=== PATIENT | male | born 1965 | race African-American/Black ===

== ENCOUNTER 2020-11-28 22:01 | Emergency (ER) | payer MEDICARE, MEDICAID, OTHER ==
[~2020-11-28] VITALS: Ht 170.2 cm; Wt 73.0 kg
[2020-11-28 22:30] LABS: HEMATOCRIT 42.9 % (39.0-50.0); HEMOGLOBIN 13.6 g/dl (14.0-18.0); IMMATURE GRANULOCYTES 0.5 % (0.0-5.0); MEAN CELL VOLUME 96.6 fL CALC (80.0-100.0); MEAN CORPUSCULAR HGB 30.6 pG CALC (26.0-32.0); MEAN CORPUSCULAR HGB CONC 31.7 g/dL CAL (32.0-36.0); NEUT# 2.11 thou/uL (1.82-7.42); RED BLOOD COUNT 4.44 mill/uL (4.70-6.10); RED CELL DISTRI WIDTH 15.5 % (11.5-15.5)
[2020-11-28 22:42] LABS: BILIRUBIN, TOTAL 0.3 mg/dL (0.0-1.4); POTASSIUM 3.8 mmol/l (3.5-5.1); TOTAL PROTEIN 6.9 g/dL (6.3-8.2)
[2020-11-28] MEDS ORDERED: TRIUMEQ 600-50-1 TAB PO (23:05)
[2020-11-28] MEDS ORDERED: NEURONTIN400 MG PO (23:05)
[2020-11-28] MEDS ORDERED: VITAMIN D33000 UNIT PO (23:06)
[2020-11-28] MEDS ORDERED: [UNRECOGNIZED DRUG - OTHER] PO (23:08)
[2020-11-28] MEDS ORDERED: PERCOCET 5/325M1 TAB PO (23:12)
[2020-11-28] MEDS ORDERED: XANAX1 MG PO (23:13)
[2020-11-28] MEDS ORDERED: KLONOPIN1 MG PO (23:14)
[2020-11-29 00:50] VITALS: BP 138/79
[2020-11-29] MEDS ORDERED: AMBIEN10 MG PO (00:53)
[2020-11-29] MEDS ORDERED: MAGNESIUM 400 M1 TAB PO (00:54)
[2020-11-29] MEDS ORDERED: FLEXERIL5 M1 PO (04:19)
== END 2020-11-29 00:50 | disposition home or self-care (01) | DRG 92 ==
LOC: ED 22:01
PROVIDERS: Emergency Medicine
DX: R25.2 Cramp and spasm (principal); D72.819 Decreased white blood cell count, unspecified; D69.6 Thrombocytopenia, unspecified; N18.9 Chronic kidney disease, unspecified; D64.9 Anemia, unspecified; C85.10 Unspecified B-cell lymphoma, unspecified site; F41.9 Anxiety disorder, unspecified; F17.200 Nicotine dependence, unspecified, uncomplicated; Z21 Asymptomatic human immunodeficiency virus [HIV] infection status

== ENCOUNTER 2021-09-17 15:29 | Observation (INO) | payer MEDICARE, MEDICAID ==
[2021-09-17] VITALS (18 sets, daily range): BP systolic 117–152; BP diastolic 86–127
[~2021-09-17] VITALS: Ht 167.6 cm; Wt 57.0 kg
[~2021-09-17 15:29] MED LIST: AMBIEN10 MG PO; FLEXERIL5 M1 PO; KLONOPIN1 MG PO; MAGNESIUM 400 M1 TAB PO; NEURONTIN300 MG PO; PERCOCET 5/325M1 TAB PO; TRIUMEQ 600-50-1 TAB PO; VITAMIN D33000 UNIT PO; XANAX1 MG PO; [UNRECOGNIZED DRUG - OTHER] PO
[2021-09-17 16:05] LABS: HEMATOCRIT 43.6 % (39.0-50.0); HEMOGLOBIN 14.1 g/dl (14.0-18.0); MEAN CORPUSCULAR HGB 29.1 pG CALC (26.0-32.0); MEAN CORPUSCULAR HGB CONC 32.3 g/dL CAL (32.0-36.0); NEUT# 1.4 thou/uL (1.82-7.42); RED BLOOD COUNT 4.85 mill/uL (4.70-6.10); RED CELL DISTRI WIDTH 14.1 % (11.5-15.5)
[2021-09-17 16:11] LABS: BUN 11 mg/dL (9-20); BUN/CREATININE RATIO 6 (12-20 (CALC)); CARBON DIOXIDE 24 mmol/l (22-30); CHLORIDE 100 mmol/l (95-108); CREATININE 1.8 mg/dL (0.7-1.3); GFR 40 ML/MIN (>=60 (CALC)); GFR FOR AFR.AMER. 48 ML/MIN (>=60 (CALC)); LIPASE 179 u/l (23-300); MEAN CELL VOLUME 89.9 fL CALC (80.0-100.0); SGOT/AST 17 u/l (17-59); SODIUM 134 mmol/l (137-146); TOTAL PROTEIN 7.3 g/dL (6.3-8.2)
[2021-09-17 16:12] LABS: ALKALINE PHOSPHATASE 161 u/l (38-126); ANION GAP 13 (6-22 (CALC)); BILIRUBIN, TOTAL 0.5 mg/dL (0.0-1.4); POTASSIUM 2.8 mmol/l (3.5-5.1)
[2021-09-17 16:23] LABS: MYOGLOBIN 60 ng/mL (0 - 121)
[2021-09-17 17:40] LABS: URINE BILIRUBIN - DIPSTICK NEGATIVE (NEGATIVE); URINE COLOR YELLOW; URINE GLUCOSE - DIPSTICK 100 mg/dL (NEGATIVE); URINE KETONE TRACE mg/dL (NEGATIVE); URINE SPECIFIC GRAVITY 1.025
[2021-09-17 17:41] LABS: URINE BLOOD DIPSTICK TRACE (NEGATIVE); URINE LEUK ESTERASE NEGATIVE (NEGATIVE); URINE NITRITE - DIPSTICK NEGATIVE (Negative); URINE PROTEIN - DIPSTICK 30 mg/dL (NEG-TRACE); URINE RBC 0-2 RBC/hpf (0-5); URINE WBC 0-2 WBC/hpf (0-5)
[2021-09-18] VITALS (7 sets, daily range): BP systolic 115–134; BP diastolic 78–91
[2021-09-18 06:05] LABS: HEMATOCRIT 37.9 % (39.0-50.0); HEMOGLOBIN 12.2 g/dl (14.0-18.0); MEAN CELL VOLUME 90.5 fL CALC (80.0-100.0); MEAN CORPUSCULAR HGB 29.1 pG CALC (26.0-32.0); MEAN CORPUSCULAR HGB CONC 32.2 g/dL CAL (32.0-36.0); RED BLOOD COUNT 4.19 mill/uL (4.70-6.10); RED CELL DISTRI WIDTH 14.2 % (11.5-15.5)
[2021-09-18 06:10] LABS: CHOLESTEROL HDL RATIO 2.1 (<4.4 (CALC)); CREATININE 1.7 mg/dL (0.7-1.3); MAGNESIUM 2.3 mg/dL (1.6-2.3)
[2021-09-18 06:19] LABS: POTASSIUM 3.4 mmol/l (3.5-5.1)
[2021-09-18] MEDS ORDERED: TRUVADA PO (09:14)
== END 2021-09-18 14:45 | disposition home or self-care (01) ==
LOC: ED 15:29 → MS2 17:19
PROVIDERS: Nurse Practitioner; ADMIT Hospitalist; ATTEND Hospitalist
DX: R07.2 Precordial pain (principal); E87.6 Hypokalemia; R42 Dizziness and giddiness; I10 Essential (primary) hypertension; C85.10 Unspecified B-cell lymphoma, unspecified site; F41.9 Anxiety disorder, unspecified; F17.210 Nicotine dependence, cigarettes, uncomplicated; Z86.73 Personal history of transient ischemic attack (TIA), and cerebral infarction without residual deficits; Z21 Asymptomatic human immunodeficiency virus [HIV] infection status; Z20.822 Contact with and (suspected) exposure to COVID-19; Z98.84 Bariatric surgery status

== ENCOUNTER 2023-04-12 21:08 | Emergency (ER) | payer MEDICARE, MEDICAID ==
[~2023-04-12] VITALS: Ht 167.6 cm; Wt 65.0 kg
[~2023-04-12 21:08] MED LIST changes: +TRUVADA PO
[2023-04-12 21:28] VITALS: BP 118/69
[2023-04-12 21:30] VITALS: BP 97/70
[2023-04-12 21:46] VITALS: BP 100/72
[2023-04-12 22:00] VITALS: BP 100/72
[2023-04-12 22:30] VITALS: BP 103/70
[2023-04-12 22:35] LABS: BASO% 0.4 % (0-3); D-DIMER 0.75 mg/L (0.19-0.60); EOS% 1.5 % (0-8); HEMATOCRIT 37.5 % (39.0-50.0); HEMOGLOBIN 11.7 g/dl (14.0-18.0); IMMATURE GRANULOCYTES 0.4 % (0.0-5.0); MEAN CELL VOLUME 87.4 fL CALC (80.0-100.0); MEAN CORPUSCULAR HGB 27.3 pG CALC (26.0-32.0); MEAN CORPUSCULAR HGB CONC 31.2 g/dL CAL (32.0-36.0); MONO% 7.5 % (2-13); NEUT# 2.35 thou/uL (1.82-7.42); NEUT% 50.2 % (42-76); RED BLOOD COUNT 4.29 mill/uL (4.70-6.10); RED CELL DISTRI WIDTH 15.9 % (11.5-15.5)
[2023-04-12 22:40] LABS: ALBUMIN 4.1 g/dL (3.2-5.0); ALKALINE PHOSPHATASE 96 u/l (38-126); AMYLASE 75 u/l (30-110); ANION GAP 13 (6-22 (CALC)); BILIRUBIN, TOTAL 0.3 mg/dL (0.2-1.3); BUN 24 mg/dL (9-20); BUN/CREATININE RATIO 10 (12-20 (CALC)); CARBON DIOXIDE 18 mmol/l (22-30); CHLORIDE 108 mmol/l (95-108); CREATININE 2.3 mg/dL (0.7-1.3); GFR FOR AFR.AMER. 36 ML/MIN (>=60 (CALC)); GFR OTHER RACES 30 ML/MIN (>=60 (CALC)); LIPASE 131 u/l (23-300); POTASSIUM 3.5 mmol/l (3.5-5.1); SGOT/AST 21 u/l (17-59); SODIUM 135 mmol/l (137-146); TOTAL PROTEIN 7.8 g/dL (6.3-8.2)
[2023-04-12 22:55] LABS: ACT PARTIAL THROMBO TIME 27.4 SECONDS (20.0-32.5); PROTHROMBIN TIME 9.2 SECONDS (9.0-12.5)
[2023-04-13 01:29] LABS: URINE BILIRUBIN - DIPSTICK Negative (NEGATIVE); URINE BLOOD DIPSTICK Trace-lysed (NEGATIVE); URINE GLUCOSE - DIPSTICK 100 mg/dL (NEGATIVE); URINE KETONE Negative (NEGATIVE); URINE NITRITE - DIPSTICK Negative (Negative); URINE PH 5.5 (4.5-8.0); URINE PROTEIN - DIPSTICK 100 mg/dL (NEG-TRACE); URINE UROBILINOGEN - DIPSTICK 0.2 E.U./dL (0.2)
[2023-04-13 01:30] LABS: URINE COLOR Yellow; URINE LEUK ESTERASE Small (NEGATIVE)
[2023-04-13 01:37] LABS: URINE BACTERIA FEW hpf; URINE SQUAMOUS EPITHELIAL CELL FEW EPI/hpf (0-FEW)
[2023-04-13] MEDS ORDERED: BACTRIM DS1 TAB PO (01:59)
[2023-04-13 03:01] VITALS: BP 85/52
[2023-04-13 03:30] VITALS: BP 92/54
[2023-04-13 04:00] VITALS: BP 100/60
[2023-04-13 04:30] VITALS: BP 88/55
[2023-04-13 04:38] VITALS: BP 91/57
[2023-04-13 05:00] VITALS: BP 96/66
[2023-04-15] MEDS ORDERED: CEPHALEXIN500 MG PO (17:07)
== END 2023-04-13 05:19 | disposition home or self-care (01) ==
LOC: ED 21:08
PROVIDERS: Family Medicine
DX: N39.0 Urinary tract infection, site not specified (principal); N62 Hypertrophy of breast; I10 Essential (primary) hypertension; C85.90 Non-Hodgkin lymphoma, unspecified, unspecified site; F41.9 Anxiety disorder, unspecified; F17.210 Nicotine dependence, cigarettes, uncomplicated; Z21 Asymptomatic human immunodeficiency virus [HIV] infection status; Z86.73 Personal history of transient ischemic attack (TIA), and cerebral infarction without residual deficits; Z59.02 Unsheltered homelessness
CPT/HCPCS: S0164

== ENCOUNTER 2023-04-14 00:01 | Emergency (ER) | payer MEDICARE, MEDICAID ==
[~2023-04-14] VITALS: Ht 167.6 cm; Wt 63.6 kg
[~2023-04-14 00:01] MED LIST changes: +BACTRIM DS1 TAB PO
[2023-04-14 00:38] VITALS: BP 103/68
[2023-04-14 01:32] LABS: BASO% 0.5 % (0-3); EOS% 1.6 % (0-8); HEMATOCRIT 39.8 % (39.0-50.0); HEMOGLOBIN 12.3 g/dl (14.0-18.0); IMMATURE GRANULOCYTES 0.2 % (0.0-5.0); LYMPH% 33.6 % (15-41); MEAN CELL VOLUME 88.2 fL CALC (80.0-100.0); MEAN CORPUSCULAR HGB 27.3 pG CALC (26.0-32.0); MEAN CORPUSCULAR HGB CONC 30.9 g/dL CAL (32.0-36.0); MONO% 7.2 % (2-13); NEUT# 2.53 thou/uL (1.82-7.42); NEUT% 56.9 % (42-76); RED BLOOD COUNT 4.51 mill/uL (4.70-6.10)
[2023-04-14 01:43] LABS: ALBUMIN 4.1 g/dL (3.2-5.0); BILIRUBIN, TOTAL 0.2 mg/dL (0.2-1.3); CREATININE 2.1 mg/dL (0.7-1.3); POTASSIUM 3.6 mmol/l (3.5-5.1); TOTAL PROTEIN 7.7 g/dL (6.3-8.2)
[2023-04-14 03:55] VITALS: BP 103/68
[2023-04-15] MEDS ORDERED: CEPHALEXIN500 MG PO (17:07)
== END 2023-04-14 03:56 | disposition home or self-care (01) ==
LOC: ED 00:01
PROVIDERS: Internal Medicine
DX: M79.605 Pain in left leg (principal); E16.2 Hypoglycemia, unspecified; I10 Essential (primary) hypertension; F41.9 Anxiety disorder, unspecified; C85.90 Non-Hodgkin lymphoma, unspecified, unspecified site; Z86.73 Personal history of transient ischemic attack (TIA), and cerebral infarction without residual deficits; Z21 Asymptomatic human immunodeficiency virus [HIV] infection status; Z72.0 Tobacco use; Z89.612 Acquired absence of left leg above knee; Z89.611 Acquired absence of right leg above knee; Z98.84 Bariatric surgery status; Z59.00 Homelessness unspecified